=== PATIENT | female | born 1990 | race American Indian/Alaskan Native ===

== ENCOUNTER 2020-09-17 11:04 | Emergency (ER) | payer SELFPAY ==
[2020-09-17 11:54] VITALS: BP 129/84
--- NOTE | 2020-09-17 12:12 | Emergency Department Report ---
ED General Adult HPI - General Chief complaint: Vaginal Bleeding Stated complaint: BLEEDING CLOTS Time Seen by Provider: 09/17/20 11:53 Source: patient Mode of arrival: Ambulatory Limitations: No Limitations - History of Present Illness Initial comments: 30-year-old female present with chief complaint of vaginal bleeding. According to the patient, her period began a couple weeks ago but then never stopped. She states that she has been passing blood clots as well. She states that she did have cramping but that has since improved. Denies fever, vaginal discharge, dysuria, nausea or vomiting. Symptoms moderate, nothing makes worse or better. Does not have an [facility] that she sees. - Related Data Previous Rx's Medication Instructions Recorded Last Taken Type medroxyPROGESTERone ACETATE 10 mg PO QDAY #7 tablet 09/17/20 Unknown Rx [Provera] Allergies Allergy/AdvReac Type Severity Reaction Status Date / Time No Known Allergies Allergy Unverified 09/17/20 11:52 ED Review of Systems ROS: Stated complaint: BLEEDING CLOTS Other details as noted in HPI Comment: All other systems reviewed and negative Genitourinary: as per HPI ED Past Medical Hx - Past Medical History Previous Medical History?: No - Surgical History Past Surgical History?: Yes Additional Surgical History: x 1 - Social History Smoking Status: Current Every Day Smoker Substance Use Type: Alcohol - Medications Home Medications: Home Medications Medication Instructions Recorded Confirmed Last Taken Type medroxyPROGESTERone ACETATE 10 mg PO QDAY #7 tablet 09/17/20 Unknown Rx [Provera] ED Physical Exam - General Limitations: No Limitations General appearance: alert, in no apparent distress - Head Head exam: Present: atraumatic, normocephalic - Eye Eye exam: Present: normal appearance - ENT ENT exam: Present: mucous membranes moist - Neck Neck exam: Present: normal inspection - Respiratory Respiratory exam: Present: normal lung sounds bilaterally. Absent: respiratory distress - Cardiovascular Cardiovascular Exam: Present: regular rate, normal rhythm. Absent: systolic murmur, diastolic murmur, rubs, gallop - GI/Abdominal GI/Abdominal exam: Present: soft, normal bowel sounds - Extremities Exam Extremities exam: Present: normal inspection - Back Exam Back exam: Present: normal inspection - Neurological Exam Neurological exam: Present: alert, oriented X3 - Psychiatric Psychiatric exam: Present: normal affect, normal mood - Skin Skin exam: Present: warm, dry, intact, normal color. Absent: rash ED Course Vital Signs 09/17/20 11:52 Temperature 98.5 F Pulse Rate 78 Respiratory 18 Rate Blood Pressure 129/84 O2 Sat by Pulse 98 Oximetry ED Medical Decision Making - Lab Data Result diagrams: 09/17/20 12:05 - Radiology Data Radiology results: report reviewed Normal pelvic ultrasound - Medical Decision Making 30-year-old female present with vaginal bleeding for over 2 weeks. She reports passing multiple clots. States she is soaking through 3 large pads a day. Had abdominal cramping that has since resolved. Examination is normal with benign abdomen. Differential diagnoses includes dysfunctional uterine bleeding, fibroids, cyst. Labs and ultrasound pending. Labs are stable, ultrasound is negative. Will prescribe Provera and refer to [facility] for follow-up. - Differential Diagnosis dysfunctional uterine bleeding, fibroids, cyst Critical care attestation.: If time is entered above; I have spent that time in minutes in the direct care of this critically ill patient, excluding procedure time. ED Disposition Clinical Impression: Dysfunctional uterine bleeding Disposition: - TO HOME OR SELFCARE Is pt being admited?: No Condition: Good Instructions: Abnormal Uterine Bleeding Prescriptions: medroxyPROGESTERone ACETATE [Provera] 10 mg PO QDAY #7 tablet Referrals: AMBIKA DELGADO MD [Staff Physician] - 3-5 Days Time of Disposition: 13:34
[2020-09-17 12:28] LABS: Basophils % (Auto) 0.6 % (0.0-1.8); Eosinophils % (Auto) 0.3 % (0.0-4.3); Hematocrit 39.2 % (30.3-42.9); Hemoglobin 12.9 gm/dl (10.1-14.3); Lymphocytes # (Auto) 1.7 K/mm3 (1.2-5.4); Lymphocytes % (Auto) 39.8 % (13.4-35.0); Mean Corpuscular HGB Conc 33 % (30-34); Mean Corpuscular Volume 88 fl (79-97); Monocytes # (Auto) 0.2 K/mm3 (0.0-0.8); Monocytes % (Auto) 5.3 % (0.0-7.3); Platelet Count 298 K/mm3 (140-440); Red Blood Count 4.45 M/mm3 (3.65-5.03); Red Cell Distribution Width 14.7 % (13.2-15.2)
--- NOTE | 2020-09-17 13:30 | Ultrasound Report ---
ULTRASOUND PELVIS INDICATION: Vaginal bleeding for 2 weeks. Pelvic pain. TECHNIQUE: Transabdominal and Transvaginal. Duplex Color Doppler used: Yes. COMPARISON: None available FINDINGS: Uterus: Present. Size: 9.4 x 3.2 x 4.1 cm. Endometrial complex: Measures 0.7 cm with tiny nonspecific echogenic foci and no other significant ab normality. Mass lesions: None. Additional findings: None. Right Ovary: Size: 3.1 x 1.3 x 3.3 cm Blood flow: Normal. Cyst or mass: None. Left Ovary: Size: 2.8 x 1.4 x 1.5 cm Blood flow: Normal. Cyst or mass: None. Urinary Bladder: Normal. Free Fluid: Small amount along the cul-de-sac. Additional Findings: None. IMPRESSION: 1. No acute sonographic abnormality of the pelvis. 2. Additional findings as above. Signer Name: Santiago Gill MD Signed: 09/17/2020 1:26 PM Workstation Name: [id number]
== END 2020-09-17 13:51 | disposition home or self-care (01) ==
LOC: ED 11:04
DX: N93.8 Other specified abnormal uterine and vaginal bleeding (principal); F17.200 Nicotine dependence, unspecified, uncomplicated; Z79.899 Other long term (current) drug therapy
CPT/HCPCS: 36415; 76830; 76856; 84703; 85025; 86900; 86901